=== PATIENT | male | born 1960 | race Hispanic/Latino ===

== ENCOUNTER 2018-09-04 10:30 | Outpatient (AMBR) | payer MEDICAID, SELFPAY ==
--- NOTE | 2018-08-29 15:05 | PT.OIERPT ---
PT OP Initial Eval Patient Information Visit Reasons: Pain Medical Diagnosis: M54.42 Treatment Dx #1: LBP with L LE radiation Start of Care: 08/29/18 Date of Onset: 2 months ago Initial Assessment Subjective Pt is 58 yr old libyan speaking male who c/o L LE nerve pain that is unsupportable. He is walking with a cane and pain in L LE when he walks. He is not sure why it started hurting but he works in the [employer]. Now the pain is 8-9/10 and gets to 10/10 at night. PMH: none reported Imaging: with provider Pt goal: to lessen the pain in the L LE and walk Objective Trunk ArOM: B SB 18 with pain L>R Extension: unable due to pain Flexion: 10 from floor with LBP B rotation: 60% with pain to the L R SLR ROM: 42 deg. 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 He has very limited trunk extension ROM and pain with all movements. Fair rehab potential. Pt may benefit from further diagnostic imaging of L/S such as CT, MRI and orthopedic consultation. Short Term and [employer] Goals 1. Ind with HEP 2. Improved standing tolerance to 10 minutes with <=4/10 LBP 3. Pt will improve ambulatory distance to [address] 4. Pt will squat x5 with lumbar lordosis and no increase in LBP Treatment Plan Pt has 4 visits approved and will be scheduled 2x a week. 1. Manual therapy 2. Therex 3. Modalities as indicated , estim, moist heat, ice, mechanical traction Frequency and Duration 2x a week for 6 weeks Certification Dates: 08/29/18 to 11/29/18 Office Procedures PT Procedures PT Date of Service: 08/29/18 OP PT Eval Mod Complex 30 minutes: Yes
--- NOTE | 2018-08-29 15:13 | PTNOTE_ITS ---
PT OP Initial Eval Patient Information Visit Reasons: Pain Medical Diagnosis: M54.42 Treatment Dx #1: LBP with L LE radiation Start of Care: 08/29/18 Date of Onset: 2 months ago Initial Assessment Subjective Pt is 58 yr old northern irish speaking male who c/o L LE nerve pain that is unsupportable. He is walking with a cane and pain in L LE when he walks. He is not sure why it started hurting but he works in the [employer]. Now the pain is 8-9/10 and gets to 10/10 at night. PMH: none reported Imaging: with provider Pt goal: to lessen the pain in the L LE and walk Objective Trunk ArOM: B SB 18 with pain L>R Extension: unable due to pain Flexion: 10 from floor with LBP B rotation: 60% with pain to the L R SLR ROM: 42 deg. 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 He has very limited trunk extension ROM and pain with all moveme nts. Fair rehab potential. Pt may benefit from further diagnostic imaging of L/S such as CT, MRI and orthopedic consultation. Short Term and [employer] Goals 1. Ind with HEP 2. Improved standing tolerance to 10 minutes with <=4/10 LBP 3. Pt will improve ambulatory distance to [address] 4. Pt will squat x5 with lumbar lordosis and no increase in LBP Treatment Plan Pt has 4 visits approved and will be scheduled 2x a week. 1. Manual therapy 2. Therex 3. Modalities as indicated , estim, moist heat, ice, mechanical traction Frequency and Duration 2x a week for 6 weeks Certification Dates: 08/29/18 to 11/29/18 Office Procedures PT Procedures PT Date of Service: 08/29/18 OP PT Eval Mod Complex 30 minutes: Yes
--- NOTE | 2018-08-30 11:08 | PT.ODAYNRPT ---
PT Outpatient Daily Note Date of Service: August 30, 2018 OP Daily Note Visit Reasons: Pain Outpatient Physical Therapy Treatment Date: 08/30/18 Subjective: pt came in and c/o LBP to to the L radiating down to the L buttocks and thigh. Objective: see flow sheet. Assessment: pt ambulates with antalglic gait pattern and using FWW. decreased ana and WB to the LLE. pt had difficulty getting on and off the bed so assisted pt into lowering him down into supine position. assisted pt with getting up from bed. pt tolerated the modalities well with no c/o increased pain. elevated the HOB during estim and heat. Plan: continue POC per PT. Length of Time (minutes) of Treatment: 30 Minutes Office Procedures PT Procedures PT Date of Service: 08/29/18 OP PT Eval Mod Complex 30 minutes: Yes PT Procedures PT Date of Service: 08/30/18 OP Electrical Stimul Unattended: Yes Traction Mechanical: Yes
--- NOTE | 2018-09-04 12:51 | PT.ODS1RPT ---
PT OP Progress/Discharge Note Date of Service: September 04, 2018 Progress Note/DC Note Progress Note/Discharge Note: DC Note Patient Information Visit Reasons: Pain Treatment Dx #1: LBP with L LE radiation Service Continue Service or Discharge: Discharge Discharge Date: 09/04/18 Certification Date Certification Dates: 08/29/18 to 11/29/18 Status Subjective: Pt c/o L LE nerve pain that is unsupportable especially at night. Objective: Trunk ArOM: B SB 18 with pain L>R Extension: unable due to pain Flexion: 10 from floor with LBP B rotation: 60% with pain to the L R SLR ROM: 42 deg. 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 Pt presents with very high tissue irritability that limits all trunk and transitional movements consistent with lower lumbar disc dysfunction with L LE radiculopathy. He has very limited trunk extension ROM and pain with all movements. Poor rehab potential and he is not likely to benefit from therapy at this time due to increased pain during therapy and significant MRI findings including extruded disc and advanced DDD. Pt may benefit from orthopedic consultation. Plan: Pt is discharged to provider for further workup Office Procedures PT Procedures PT Date of Service: 08/29/18 OP PT Eval Mod Complex 30 minutes: Yes PT Procedures PT Date of Service: 08/30/18 OP Electrical Stimul Unattended: Yes Traction Mechanical: Yes PT Procedures PT Date of Service: 09/04/18 Therapeutic Exercise 30 minutes: Yes
== END 2018-09-22 23:59 | disposition home or self-care (01) ==
PROVIDERS: PCP Physician Assistant; Referring Provider Physician Assistant; Visit Provider Physician Assistant
DX: M54.42 Lumbago with sciatica, left side (principal)
CPT/HCPCS: 97012; 97014; 97110; 97162; G0283